=== PATIENT | male | born 1970 | race Caucasian/White ===

== ENCOUNTER 2018-10-26 20:02 | Inpatient (IN) | payer SELFPAY ==
[~2018-10-26] VITALS: Ht 170.2 cm; Wt 69.9 kg
[2018-10-26] MEDS ORDERED: SOD CHLORIDE 0.9% 1,000 ML IV STA (20:25)
[2018-10-26] MEDS ORDERED: ONDANSETRON 4 MG INJ IV STA (20:25)
[2018-10-26] MEDS ORDERED: SOD CHLORIDE 0.9% 100 ML ONE (20:27)
[2018-10-26] MEDS ORDERED: IOHEXOL 100 ML ONE (20:27)
--- NOTE | 2018-10-26 22:29 | ERD ---
ER Documentation Chief Complaint Chief Complaint vomiting/dizziness/blurry vision x 1 day. active vomiting HPI Patient is a 47-year-old male with no medical problems who presents with dizziness. The patient said that he started with dizziness at 9:30 AM this morning. He says that when he lays down he feels fine but when he sits up he gets dizzy. He had blurry vision as well. He felt like his balance was off. He had vomiting. He has no slurred speech and no weakness of his arms or legs. Upon review of old medical records this is the patient's first visit to the emergency department. He does not currently have a primary doctor. ROS All systems reviewed and are negative except as per history of present illness. PMhx/Soc Medical and Surgical Hx: pt denies Medical Hx History of Surgery: Yes (abdomen) Anesthesia Reaction: No Hx Neurological Disorder: No Hx Respiratory Disorders: No Hx Cardiac Disorders: No Hx Psychiatric Problems: No Hx Miscellaneous Medical Probl: No Hx Alcohol Use: Yes (daily) Hx Substance Use: Yes (marijuana) Hx Tobacco Use: Yes Smoking Status: Current every day smoker FmHx Family History: diabetes Physical Exam Vitals Vital Signs Date Temp Pulse Resp B/P (MAP) Pulse Ox O2 O2 Flow FiO2 Time Delivery Rate 10/26/18 68 20 114/69 100 Room Air 22:05 (84) 10/26/18 97.7 64 10 143/82 100 Room Air 21:02 (102) 10/26/18 Nasal 20:28 Cannula 10/26/18 97.6 78 18 154/93 98 20:10 (113) Physical Exam Const: Moderate distress Head: Atraumatic Eyes: Normal Conjunctiva ENT: Normal External Ears, Nose and Mouth. Neck: Full range of motion. No meningismus. Resp: Clear to auscultation bilaterally Cardio: Regular rate and rhythm, no murmurs Abd: Soft, non tender, non distended. Normal bowel sounds Skin: Diaphoresis Back: No midline or flank tenderness Ext: No cyanosis, or edema Neur: Awake and alert, cranial nerves II through XII are intact, strength is 5 out of 5 in all 4 extremity's, no slurred speech, patient does have nystagmus when looking to the left but none when looking to the right Psych: Normal Mood and Affect Result Diagram: 10/26/18203010/26/182030 Results 24 hrs Laboratory Tests Test 10/26/18 20:31 White Blood Count 9.7 10^3/ul Red Blood Count 4.97 10^6/ul Hemoglobin 14.1 g/dl Hematocrit 40.9 % Mean Corpuscular Volume 82.3 fl Mean Corpuscular Hemoglobin 28.4 pg Mean Corpuscular Hemoglobin Concent 34.5 g/dl Red Cell Distribution Width 13.9 % Platelet Count 333 10^3/UL Mean Platelet Volume 7.8 fl Immature Granulocytes % 0.500 % Neutrophils % 62.7 % Lymphocytes % 27.5 % Monocytes % 7.9 % Eosinophils % 0.9 % Basophils % 0.5 % Nucleated Red Blood Cells % 0.0 /100WBC Immature Granulocytes # 0.050 10^3/ul Neutrophils # 6.1 10^3/ul Lymphocytes # 2.7 10^3/ul Monocytes # 0.8 10^3/ul Eosinophils # 0.1 10^3/ul Basophils # 0.1 10^3/ul Nucleated Red Blood Cells # 0.0 10^3/ul Prothrombin Time 12.5 Sec Prothrombin Time Ratio 1.0 INR International Normalized Ratio 0.92 Activated Partial Thromboplast Time 25.4 Sec Sodium Level 144 mmol/L Potassium Level 3.9 mmol/L Chloride Level 107 mmol/L Carbon Dioxide Level 26 mmol/L Anion Gap 11 Blood Urea Nitrogen 7 mg/dl Creatinine 0.71 mg/dl Est Glomerular Filtrat Rate mL/min > 60 mL/min Glucose Level 128 mg/dl Hemoglobin A1c 5.7 % Calcium Level 9.8 mg/dl Creatine Kinase 81 IU/L Creatine Kinase Index 0.5 Creatinine Kinase MB (Mass) 0.43 ng/ml Troponin I < 0.012 ng/ml Triglycerides Level 471 mg/dl Cholesterol Level 186 mg/dl LDL Cholesterol, Calculated 37 mg/dl HDL Cholesterol 55 mg/dl Cholesterol/HDL Ratio 3.3 RATIO Ethyl Alcohol Level < 10.0 mg/dl Current Medications Medications Dose Sig/Brandee Start Time Status Last (Trade) Ordered Route PRN Stop Time Admin Dose Reason Admin Sodium 1,000 ml @ Q1H STAT 10/26/18 DC 10/26/18 Chloride 1,000 mls/hr IV 20:25 10/26/18 20:53 21:24 Ondansetron 4 mg ONCE STAT 10/26/18 DC 10/26/18 HCl (Zofran IV 20:25 10/26/18 20:52 Inj) 20:26 IV Flush 10 ml STK-MED 10/26/18 DC (NS 10 ml) ONCE .ROUTE 20:27 10/26/18 20:28 Sodium 100 ml @ ud STK-MED 10/26/18 DC Chloride ONCE .ROUTE 20:27 10/26/18 20:28 Iohexol 100 ml @ ud STK-MED 10/26/18 DC ONCE .ROUTE 20:27 10/26/18 20:28 Ondansetron 4 mg ER BRIDGE 10/26/18 HCl (Zofran PRN IV 22:30 10/27/18 Inj) NAUSEA/VOMITI 22:29 NG 650 mg ER BRIDGE 10/26/18 Acetaminophen PRN PO 22:30 10/27/18 (Tylenol .MILD PAIN 22:29 Tab) 1-3 OR TEMP IV Flush 3 ml PER 10/26/18 UNV (NS 3 ml) PROTOCOL IV 22:30 Ondansetron 4 mg Q6H PRN 10/26/18 UNV HCl (Zofran IV 22:30 Inj) NAUSEA/VOMITI NG Aspirin 81 mg DAILY PO 10/27/18 UNV (Aspirin) 09:00 650 mg Q6H PRN 10/26/18 UNV Acetaminophen PO .PAIN 1-3 22:30 (Tylenol OR TEMP Tab) Enoxaparin 40 mg DAILY SC 10/27/18 UNV Sodium 09:00 (Lovenox) Procedures/MDM CT brain read by radiology. CTA of the brain and neck read by radiology. Chest x-ray read by radiology. EKG read by me: Rate/Rhythm: Regular rate and rhythm at a normal rate Intervals: Normal Impression: No evidence of ischemia or arrhythmia Patient is a 47-year-old male who presents with dizziness and blurry vision and being off balance. A code stroke was called as he was within the 24-hour window for potential mechanical retrieval for a clot. He is outside the window for IV TPA as his symptoms started at 9:30 AM. Timeline is as follows: atient seen by myself ode stroke called and neurology was called 2030I spoke with Dr. Hurtado from telemetry neurology atient went to CT scan [id number] bleed per radiology on the noncontrast CT scan 5Dr. Hurtado complete his evaluation and said that there is no obvious acute ischemic stroke but there is an aneurysm. He recommended MRI of the brain to see if there actually was stroke or to see if there is any bleeding from this aneurysm. He has not convinced that the aneurysm is causing the patient's symptoms and therefore felt that MRI would be indicated prior to her surgery consultation. Patient was not a candidate for IV TPA as her symptoms are more than 4.5 hours old or transfer for mechanical retrieval as there is no large vessel occlusion. I spoke with Dr. Osborne from the panel team for admission to a telemetry observation bed. Critical Care: Time: 35 minutes excluding all billable procedures. Treatments/Evaluations: Close monitoring and treatment of unstable vital signs, cardiorespiratory, and neurologic status, while maintaining tight balance of fluid, respiratory, and cardiac interventions. Departure Diagnosis: Primary Impression: Dizziness Additional Impression: Vomiting Vomiting type: unspecified Vomiting Intractability: non-intractable Nausea presence: with nausea Qualified Codes: R11.2 - Nausea with vomiting, unspecified Condition: JANNETH Sheikh MD October 26, 2018 22:29
[2018-10-26] MEDS ORDERED: ONDANSETRON 4 MG INJ IV PRN ×2 (22:30)
[2018-10-26] MEDS ORDERED: NACL 0.9% 3 ML SYG IV SCH (22:30)
[2018-10-26] MEDS ORDERED: ACETAMINOPHEN 325 MG TAB PO PRN ×2 (22:30)
--- NOTE | 2018-10-26 22:52 | STROKE ---
Date/Time of Note Date/Time of Note DATE: 10/26/18 TIME: 22:41 Patient Information General Patient location: emergency Arrival Date Age 47 Gender male Weight 71.3 kg Vital Signs Vital Signs Vital Signs Date Temp Pulse Resp B/P (MAP) Pulse Ox O2 O2 Flow FiO2 Time Delivery Rate 10/26/18 68 20 114/69 100 Room Air 22:05 (84) 10/26/18 97.7 21:02 Patient History Past Medical History None Social History Other Other: cigars every other day and marijuana Current Medications Anti-Platelets: None Labs Coagulation Labs: Coagulation Test 10/26/18 20:31 Activated Partial Thromboplast Time 25.4 Sec (23.0-35.0) History & Physical History of Present Illness 47 yo M who presents with dizziness, blurry vision and new intermittent moderate headaches that began earlier today at around 930am. Symptoms had persisted since this morning, however at this time have improved Review of Systems All Other Systems: Reviewed and Negative NIH Stroke Scale NIH Stroke Scale [id number] Total Score: [id number] Date/Time Recorded DATE: 10/26/18 TIME: 21:41 Submitted By Kristopher Hurtado t-PA Imaging Review Imaging Reviewed: Yes Date/Time Imaging Reviewed DATE: 10/26/18 TIME: 22:41 t-PA Administration Recommendation: No Weight 71.3 kg Recommedation submitted by Kristopher Hutrado Reason t-PA not Recommended NIHSS of 0 and concern for other etiology such as SAH Recommendations Impression Diagnosis 47 yo M with subacute dizziness, new moderate headaches and neck stiffness, blurry vision that all began this morning. Symptoms have since improved and subsided. NIHSS was 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 TPA was not recommended given that his symptoms began outside the eligible time window, and also due to concern for potential other etiology such as SAH Recommendation Admission to telemetry for ischemic workup. Neurology consult to guide ischemic/embolic workup: TTE w bubble, LDL, A1c, MRI brain. If ischemic workup is unremarkable, would recommend referral to Neurosurgery and further evaluation of his cerebral aneurysm [id number] Diagnostic Labs: [id number] Lipid Proile Hgb A1C Urine Drug Screen KRISTOPHER HURTADO MD October 26, 2018 22:52
[2018-10-27] VITALS (10 sets, daily range): BP systolic 112–140; BP diastolic 68–80; PULSE 60–94; RESP 18–20; Ht 170.2 cm; Wt 69.9 kg
--- NOTE | 2018-10-27 07:49 | HP ---
Date/Time of Note Date/Time of Note DATE: 10/27/18 TIME: 07:41 Assessment/Plan VTE Prophylaxis Pharmacological prophylaxis: heparin Lines/Catheters IV Catheter Type (from [facility]): Saline Lock Urinary Cath still in place: No Assessment/Plan Assessment/Plan 47-year-old male with no significant past medical history presented with blurry vision, headache and neck stiffness. Head CT negative for acute findings. CT Lottie of the head and neck shows approximately 2.3 x 2.5 mm aneurysm off of the cavernous left ICA. PLAN -Continue telemetry monitoring -Aspirin and statin -MRI of the brain -2D echo -PT eval prior to discharge Result Diagram: 10/27/18 0556 10/27/18 0556 Results 24hrs Laboratory Tests Test 10/26/18 20:31 10/27/18 01:08 10/27/18 05:56 White Blood Count 9.7 10.0 Red Blood Count 4.97 4.72 Hemoglobin 14.1 13.1 L Hematocrit 40.9 L 38.7 L Mean Corpuscular Volume 82.3 82.0 Mean Corpuscular Hemoglobin 28.4 L 27.8 L Mean Corpuscular Hemoglobin Concent 34.5 33.9 Red Cell Distribution Width 13.9 14.0 Platelet Count 333 355 Mean Platelet Volume 7.8 8.2 Immature Granulocytes % 0.500 H 0.400 Neutrophils % 62.7 48.3 Lymphocytes % 27.5 40.4 Monocytes % 7.9 9.7 Eosinophils % 0.9 0.9 Basophils % 0.5 0.3 Nucleated Red Blood Cells % 0.0 0.0 Immature Granulocytes # 0.050 H 0.040 H Neutrophils # 6.1 4.8 Lymphocytes # 2.7 4.0 H Monocytes # 0.8 1.0 H Eosinophils # 0.1 0.1 Basophils # 0.1 0.0 Nucleated Red Blood Cells # 0.0 0.0 Prothrombin Time 12.5 Prothrombin Time Ratio 1.0 INR International Normalized Ratio 0.92 Activated Partial Thromboplast Time 25.4 Sodium Level 144 141 Potassium Level 3.9 3.7 Chloride Level 107 106 Carbon Dioxide Level 26 25 Anion Gap 11 10 Blood Urea Nitrogen 7 5 L Creatinine 0.71 0.69 Est Glomerular Filtrat Rate mL/min > 60 > 60 Glucose Level 128 104 Hemoglobin A1c 5.7 Calcium Level 9.8 9.6 Creatine Kinase 81 Creatine Kinase Index 0.5 Creatinine Kinase MB (Mass) 0.43 Troponin I < 0.012 Triglycerides Level 471 H 328 H Cholesterol Level 186 177 LDL Cholesterol, Calculated 37 62 # HDL Cholesterol 55 49 Cholesterol/HDL Ratio 3.3 3.6 Ethyl Alcohol Level < 10.0 H Urine Color STRAW Urine Clarity CLEAR Urine pH 7.0 Urine Specific [place] > 1.060 H Urine Ketones NEGATIVE Urine Nitrite NEGATIVE Urine Bilirubin NEGATIVE Urine Urobilinogen NEGATIVE Urine Leukocyte Esterase TRACE A Urine Microscopic RBC 1 Urine Microscopic WBC 3 Urine Hemoglobin 1+ H Urine Glucose NEGATIVE Urine Total Protein NEGATIVE Urine Opiates Screen Negative Urine Barbiturates Negative Urine Amphetamines Screen Negative Urine Benzodiazepines Screen Negative Urine Cocaine Screen Negative Urine Cannabinoids Positive Magnesium Level 2.0 Total Bilirubin 0.5 Direct Bilirubin 0.00 Indirect Bilirubin 0.5 Aspartate Amino Transf (AST/SGOT) 21 Alanine Aminotransferase (ALT/SGPT) 22 Alkaline Phosphatase 82 Total Protein 6.9 Albumin 3.9 Globulin 3.00 Albumin/Globulin Ratio 1.30 Thyroid Stimulating Hormone (TSH) 2.320 HPI/ROS Admit Date/Time Admit Date/Time October 26, 2018 at 22:11 Hx of Present Illness This is a 47-year-old male with no significant past medical history who presented to the ER with blurry vision and headache. He said he woke up this morning around 9 AM with the symptoms. He went to local supermarket, but pain actually worsens while walking around. He denied focal weakness, numbness or slurred speech. He also denied chest pain, shortness of breath, fever or chills. He denied a similar symptoms in the past. Currently he is overall feeling well except complaining of not been able to sleep as a result of " people constantly coming to his room and awaken him up" When presented to the ER, vitals were stable. Basic labs in acceptable range. U tox only positive for marijuana. Head CT in the ER was negative for acute findings. CT Lottie of the head and neck shows approximately 2.3 x 2.5 mm aneurysm off of the cavernous left ICA. PMH/Family/Social Past Medical History Medical History: other (See HPI) Medications Current Medications Ondansetron HCl (Zofran Inj) 4 mg ER BRIDGE PRN IV NAUSEA/VOMITING Last administered on 10/27/18at 03:18; Admin Dose 4 MG; Start 10/26/18 at 22:30; Stop 10/27/18 at 22:29 Acetaminophen (Tylenol Tab) 650 mg ER BRIDGE PRN PO .MILD PAIN 1-3 OR TEMP; Start 10/26/18 at 22:30; Stop 10/27/18 at 22:29 IV Flush (NS 3 ml) 3 ml PER PROTOCOL IV ; Start 10/26/18 at 22:30 Ondansetron HCl (Zofran Inj) 4 mg Q6H PRN IV NAUSEA/VOMITING; Start 10/26/18 at 22:30 Aspirin (Aspirin) 81 mg DAILY PO ; Start 10/27/18 at 09:00 Acetaminophen (Tylenol Tab) 650 mg Q6H PRN PO .PAIN 1-3 OR TEMP; Start 10/26/18 at 22:30 Enoxaparin Sodium (Lovenox) 40 mg DAILY SC ; Start 10/27/18 at 09:00 Coded Allergies: No Known Allergy (Unverified , 10/26/18) Past Surgical History Past Surgical Hx: other (See HPI) Family History Significant Family History: no pertinent family hx Social History Alcohol Use: none Smoking Status: Light tobacco smoker Drug Use: none Exam/Review of Systems Vital Signs Vitals Vital Signs Date Temp Pulse Resp B/P (MAP) Pulse Ox O2 O2 Flow FiO2 Time Delivery Rate 10/27/18 98.2 70 18 120/80 92 Room Air 04:00 (93) Intake and Output 10/26/18 10/26/18 10/27/18 1515:00 23:00 07:00 IntakeIntake Total 1000 ml BalanceBalance 1000 ml Exam Constitutional: alert, oriented, well developed Head: normocephalic, atraumatic Eyes: EOMI, PERRL Respiratory: clear to auscultation, normal air movement Cardiovascular: regular rate and rhythm, nl pulses Gastrointestinal: soft Extremities: normal pulses Neurological: nl mental status, nl speech, nl strength KESHAWN EVANS MD October 27, 2018 07:49
[2018-10-27] MEDS: ASPIRIN 81 MG TAB PO SCH (08:19)
[2018-10-27] MEDS ORDERED: ENOXAPARIN 40 MG/0.4 ML SYG SC SCH (09:00)
--- NOTE | 2018-10-27 14:46 | PN ---
Date/Time of Note Date/Time of Note DATE: 10/27/18 TIME: 14:46 Assessment/Plan VTE Prophylaxis Risk score (from [facility])>0 risk: 1 SCD applied (from [facility]): No SCD contraindicated: other Pharmacological prophylaxis: NA/contraindicated Pharm contraindication: low risk/ambulating Lines/Catheters [facility] Saline Lock Urinary Cath still in place: No Assessment/Plan Hospital Course SUBJECTIVE: Lying in bed comfortably. No further dizziness, blurry vision, or headache. Tele showed 6 beats of V. tach nonsustained. OBJECTIVE: Vital signs-see below PHYSICAL EXAM: Constitutional: Adequately built,not in acute distress. HEENT: Head atraumatic and normocephalic. Eyes: Extraocular muscles intact. Anicteric sclerae. Pupils equal bilaterally, reactive to light. NECK: Supple without lymph node. CHEST: Clear and good breath sounds equally. No wheezing. No rhonchi. HEART: S1, S2. Regular rate and rhythm. ABDOMEN: Soft/non tender with no rebound tenderness. Bowel sounds were present. EXTREMITIES: No cyanosis, clubbing or edema. NEUROLOGIC: Alert and oriented x3. No focal deficit. No sensory deficit. PSYCHOSOCIAL: No signs of depression. INTEGUMENTARY: No open wounds. ASSESSMENT AND PLAN:47 yo M w/no pmh admitted for sudden onset of dizziness/blurry vision/headache, also found to have cerebral aneurysm. Headache/vision changes, rule out etiology -Symptoms resolved -Neurology consult -Pending MRI -Aspirin/statin regimen Cerebral aneurysm measuring 2.3 x 2.5 mm -unsure has something to do with presenting symptoms.. Will call neurosurgery if indicated by neurology. Dyslipidemia/triglyceridemia -At high intensity statin Cannabis use -Advised on cessation NSVT/6 beats -Cardiology consult -Monitor elect light level closely and keep K>4.0,mag>2.0 VT prophylaxis: SCDs Disposition: Follow-up neurology recommendations. Follow-up MRI. Patient was seen in collaboration with Dr. Pierce. Result Diagram: 10/27/18 0556 10/27/18 0556 Results 24hrs Laboratory Tests Test 10/26/18 20:31 10/27/18 01:08 10/27/18 05:56 10/27/18 14:01 White Blood Count 9.7 10.0 Red Blood Count 4.97 4.72 Hemoglobin 14.1 13.1 L Hematocrit 40.9 L 38.7 L Mean Corpuscular Volume 82.3 82.0 Mean Corpuscular 28.4 L 27.8 L Hemoglobin Mean Corpuscular 34.5 33.9 Hemoglobin Concent Red Cell Distribution 13.9 14.0 Width Platelet Count 333 355 Mean Platelet Volume 7.8 8.2 Immature Granulocytes % 0.500 H 0.400 Neutrophils % 62.7 48.3 Lymphocytes % 27.5 40.4 Monocytes % 7.9 9.7 Eosinophils % 0.9 0.9 Basophils % 0.5 0.3 Nucleated Red Blood 0.0 0.0 Cells % Immature Granulocytes # 0.050 H 0.040 H Neutrophils # 6.1 4.8 Lymphocytes # 2.7 4.0 H Monocytes # 0.8 1.0 H Eosinophils # 0.1 0.1 Basophils # 0.1 0.0 Nucleated Red Blood 0.0 0.0 Cells # Prothrombin Time 12.5 Prothrombin Time Ratio 1.0 INR International 0.92 Normalized Ratio Activated 25.4 Partial Thromboplast Time Sodium Level 144 141 Potassium Level 3.9 3.7 Chloride Level 107 106 Carbon Dioxide Level 26 25 Anion Gap 11 10 Blood Urea Nitrogen 7 5 L Creatinine 0.71 0.69 Est Glomerular Filtrat > 60 > 60 Rate mL/min Glucose Level 128 104 Hemoglobin A1c 5.7 5.8 Calcium Level 9.8 9.6 Creatine Kinase 81 96 Creatine Kinase Index 0.5 0.4 Creatinine Kinase MB 0.43 0.38 (Mass) Troponin I < 0.012 < 0.012 Triglycerides Level 471 H 328 H Cholesterol Level 186 177 LDL Cholesterol, 37 62 # Calculated HDL Cholesterol 55 49 Cholesterol/HDL Ratio 3.3 3.6 Ethyl Alcohol Level < 10.0 H Urine Color STRAW Urine Clarity CLEAR Urine pH 7.0 Urine Specific [place] > 1.060 H Urine Ketones NEGATIVE Urine Nitrite NEGATIVE Urine Bilirubin NEGATIVE Urine Urobilinogen NEGATIVE Urine Leukocyte Esterase TRACE A Urine Microscopic RBC 1 Urine Microscopic WBC 3 Urine Hemoglobin 1+ H Urine Glucose NEGATIVE Urine Total Protein NEGATIVE Urine Opiates Screen Negative Urine Barbiturates Negative Urine Amphetamines Negative Screen Urine Benzodiazepines Negative Screen Urine Cocaine Screen Negative Urine Cannabinoids Positive Magnesium Level 2.0 Total Bilirubin 0.5 Direct Bilirubin 0.00 Indirect Bilirubin 0.5 Aspartate Amino 21 Transf (AST/SGOT) Alanine 22 Aminotransferase (ALT/SG PT) Alkaline Phosphatase 82 Total Protein 6.9 Albumin 3.9 Globulin 3.00 Albumin/Globulin Ratio 1.30 Thyroid Stimulating 2.320 Hormone (TSH) Exam/Review of Systems Exam Vitals Vital Signs Date Temp Pulse Resp B/P (MAP) Pulse Ox O2 O2 Flow FiO2 Time Delivery Rate 10/27/18 98.0 67 20 131/79 98 12:20 (96) 10/27/18 Room Air 04:00 Intake and Output 10/26/18 10/26/18 10/27/18 1515:00 23:00 07:00 IntakeIntake Total 1000 ml BalanceBalance 1000 ml Results Results 24hrs Laboratory Tests Test 10/26/18 20:31 10/27/18 01:08 10/27/18 05:56 10/27/18 14:01 White Blood Count 9.7 10.0 Red Blood Count 4.97 4.72 Hemoglobin 14.1 13.1 L Hematocrit 40.9 L 38.7 L Mean Corpuscular Volume 82.3 82.0 Mean Corpuscular 28.4 L 27.8 L Hemoglobin Mean Corpuscular 34.5 33.9 Hemoglobin Concent Red Cell Distribution 13.9 14.0 Width Platelet Count 333 355 Mean Platelet Volume 7.8 8.2 Immature Granulocytes % 0.500 H 0.400 Neutrophils % 62.7 48.3 Lymphocytes % 27.5 40.4 Monocytes % 7.9 9.7 Eosinophils % 0.9 0.9 Basophils % 0.5 0.3 Nucleated Red Blood 0.0 0.0 Cells % Immature Granulocytes # 0.050 H 0.040 H Neutrophils # 6.1 4.8 Lymphocytes # 2.7 4.0 H Monocytes # 0.8 1.0 H Eosinophils # 0.1 0.1 Basophils # 0.1 0.0 Nucleated Red Blood 0.0 0.0 Cells # Prothrombin Time 12.5 Prothrombin Time Ratio 1.0 INR International 0.92 Normalized Ratio Activated 25.4 Partial Thromboplast Time Sodium Level 144 141 Potassium Level 3.9 3.7 Chloride Level 107 106 Carbon Dioxide Level 26 25 Anion Gap 11 10 Blood Urea Nitrogen 7 5 L Creatinine 0.71 0.69 Est Glomerular Filtrat > 60 > 60 Rate mL/min Glucose Level 128 104 Hemoglobin A1c 5.7 5.8 Calcium Level 9.8 9.6 Creatine Kinase 81 96 Creatine Kinase Index 0.5 0.4 Creatinine Kinase MB 0.43 0.38 (Mass) Troponin I < 0.012 < 0.012 Triglycerides Level 471 H 328 H Cholesterol Level 186 177 LDL Cholesterol, 37 62 # Calculated HDL Cholesterol 55 49 Cholesterol/HDL Ratio 3.3 3.6 Ethyl Alcohol Level < 10.0 H Urine Color STRAW Urine Clarity CLEAR Urine pH 7.0 Urine Specific [place] > 1.060 H Urine Ketones NEGATIVE Urine Nitrite NEGATIVE Urine Bilirubin NEGATIVE Urine Urobilinogen NEGATIVE Urine Leukocyte Esterase TRACE A Urine Microscopic RBC 1 Urine Microscopic WBC 3 Urine Hemoglobin 1+ H Urine Glucose NEGATIVE Urine Total Protein NEGATIVE Urine Opiates Screen Negative Urine Barbiturates Negative Urine Amphetamines Negative Screen Urine Benzodiazepines Negative Screen Urine Cocaine Screen Negative Urine Cannabinoids Positive Magnesium Level 2.0 Total Bilirubin 0.5 Direct Bilirubin 0.00 Indirect Bilirubin 0.5 Aspartate Amino 21 Transf (AST/SGOT) Alanine 22 Aminotransferase (ALT/SG PT) Alkaline Phosphatase 82 Total Protein 6.9 Albumin 3.9 Globulin 3.00 Albumin/Globulin Ratio 1.30 Thyroid Stimulating 2.320 Hormone (TSH) Medications Medication Current Medications IV Flush (NS 3 ml) 3 ml PER PROTOCOL IV ; Start 10/26/18 at 22:30 Ondansetron HCl (Zofran Inj) 4 mg Q6H PRN IV NAUSEA/VOMITING; Start 10/26/18 at 22:30 Aspirin (Aspirin) 81 mg DAILY PO Last administered on 10/27/18at 08:19; Admin Dose 81 MG; Start 10/27/18 at 09:00 Acetaminophen (Tylenol Tab) 650 mg Q6H PRN PO .PAIN 1-3 OR TEMP; Start 10/26/18 at 22:30 Atorvastatin Calcium (Lipitor) 80 mg HS PO ; Start 10/27/18 at 21:00 TSERING ARMENDARIZ NP October 27, 2018 14:46
[2018-10-27] MEDS ORDERED: POTASSIUM CHLORIDE (SR) 20 MEQ TAB PO STA (15:07)
--- NOTE | 2018-10-27 16:14 | CONS ---
Assessment/Plan Assessment/Plan Hospital Course 47 yo M with no significant PMH who presents for evaluation of nonspecific headache, dizziness, and blurred vision... for which neurology is consulted. The clinical picture could be consistent with new onset migraines. 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 CTH was unrevealing. CTA H/N was notable for an incidental 2mm L cavernous ICA aneurysm. P: Await MRI brain for further characterization Agree with ASA/Lipitor pending the above Permissive HTN for 24h pending the above Cont medical management per primary PT/OT as necessary Will follow clinically, to recommend neurologic studies, as necessary Consultation Date/Type/Reason Admit Date/Time October 26, 2018 at 22:11 Type of Consult Neurology Reason for Consultation headache/dizziness Requesting Provider: BEATRIZ COOPER Date/Time of Note DATE: 10/27/18 TIME: 16:14 Hx of Present Illness 47 yo M with no significant PMH who presented to the ED with c/o headache, dizziness and blurred vision. History was obtained from pt and chart review. The pt states that his headache and blurred vision have resolved, though his dizziness persists. Denies all other focal sx currently. He confirms the story below: Hx of Present Illness This is a 47-year-old male with no significant past medical history who presented to the ER with blurry vision and headache. He said he woke up this morning around 9 AM with the symptoms. He went to local supermarket, but pain actually worsens while walking around. He denied focal weakness, numbness or slurred speech. He also denied chest pain, shortness of breath, fever or chills. He denied a similar symptoms in the past. Currently he is overall feeling well except complaining of not been able to sleep as a result of " people constantly coming to his room and awaken him up" When presented to the ER, vitals were stable. Basic labs in acceptable range. U tox only positive for marijuana. Head CT in the ER was negative for acute findings. CT Lottie of the head and neck shows approximately 2.3 x 2.5 mm aneurysm off of the cavernous left ICA. negative unless noted otherwise in HPI Exam/Review of Systems Exam Vitals Vital Signs Date Temp Pulse Resp B/P (MAP) Pulse Ox O2 O2 Flow FiO2 Time Delivery Rate 10/27/18 66 16:00 10/27/18 98.0 20 131/79 98 12:20 (96) 10/27/18 Room Air 04:00 Intake and Output 10/26/18 10/26/18 10/27/18 1414:59 22:59 06:59 IntakeIntake Total 1000 ml BalanceBalance 1000 ml Exam PE: Gen Appearance: No Apparent Distress HEENT: Normocephalic Cardiovascular: Regular rate Lungs: Clear bilaterally Abdomen: Soft Extremities: Dry NE: The patient was alert and oriented.. Language was normal. Fund of knowledge was normal. Pupils were equal and reactive to light. There was no afferent pupillary defect. Visual chapman were normal. Funduscopic examination was limited. Ptosis was absent. There was no nystagmus. Facial sensation was normal. Face was symmetric with normal strength. Hearing was intact. Palate movements were normal. Neck strength was normal. There was normal tongue bulk and speed of movement. Tone was normal. Muscle bulk was normal. I did not see fasciculations. Arms and legs were strong. Vibration sensation was normal. Temperature and pinprick sensation was normal. Rapid alternating movements were normal. There was no dysmetria. There was no intention tremor. Gait was deferred due to bedrest. Arm and leg reflexes were 2+ and symmetric. Slaughter's sign was absent. Plantar responses were flexor. Results Result Diagram: 10/27/18 0556 10/27/18 0556 Results 24hrs Laboratory Tests Test 10/26/18 20:31 10/27/18 01:08 10/27/18 05:56 10/27/18 14:01 White Blood Count 9.7 10.0 Red Blood Count 4.97 4.72 Hemoglobin 14.1 13.1 L Hematocrit 40.9 L 38.7 L Mean Corpuscular Volume 82.3 82.0 Mean Corpuscular 28.4 L 27.8 L Hemoglobin Mean Corpuscular 34.5 33.9 Hemoglobin Concent Red Cell Distribution 13.9 14.0 Width Platelet Count 333 355 Mean Platelet Volume 7.8 8.2 Immature Granulocytes % 0.500 H 0.400 Neutrophils % 62.7 48.3 Lymphocytes % 27.5 40.4 Monocytes % 7.9 9.7 Eosinophils % 0.9 0.9 Basophils % 0.5 0.3 Nucleated Red Blood 0.0 0.0 Cells % Immature Granulocytes # 0.050 H 0.040 H Neutrophils # 6.1 4.8 Lymphocytes # 2.7 4.0 H Monocytes # 0.8 1.0 H Eosinophils # 0.1 0.1 Basophils # 0.1 0.0 Nucleated Red Blood 0.0 0.0 Cells # Prothrombin Time 12.5 Prothrombin Time Ratio 1.0 INR International 0.92 Normalized Ratio Activated 25.4 Partial Thromboplast Time Sodium Level 144 141 Potassium Level 3.9 3.7 Chloride Level 107 106 Carbon Dioxide Level 26 25 Anion Gap 11 10 Blood Urea Nitrogen 7 5 L Creatinine 0.71 0.69 Est Glomerular Filtrat > 60 > 60 Rate mL/min Glucose Level 128 104 Hemoglobin A1c 5.7 5.8 Calcium Level 9.8 9.6 Creatine Kinase 81 96 Creatine Kinase Index 0.5 0.4 Creatinine Kinase MB 0.43 0.38 (Mass) Troponin I < 0.012 < 0.012 Triglycerides Level 471 H 328 H Cholesterol Level 186 177 LDL Cholesterol, 37 62 # Calculated HDL Cholesterol 55 49 Cholesterol/HDL Ratio 3.3 3.6 Ethyl Alcohol Level < 10.0 H Urine Color STRAW Urine Clarity CLEAR Urine pH 7.0 Urine Specific [place] > 1.060 H Urine Ketones NEGATIVE Urine Nitrite NEGATIVE Urine Bilirubin NEGATIVE Urine Urobilinogen NEGATIVE Urine Leukocyte Esterase TRACE A Urine Microscopic RBC 1 Urine Microscopic WBC 3 Urine Hemoglobin 1+ H Urine Glucose NEGATIVE Urine Total Protein NEGATIVE Urine Opiates Screen Negative Urine Barbiturates Negative Urine Amphetamines Negative Screen Urine Benzodiazepines Negative Screen Urine Cocaine Screen Negative Urine Cannabinoids Positive Magnesium Level 2.0 Total Bilirubin 0.5 Direct Bilirubin 0.00 Indirect Bilirubin 0.5 Aspartate Amino 21 Transf (AST/SGOT) Alanine 22 Aminotransferase (ALT/SG PT) Alkaline Phosphatase 82 Total Protein 6.9 Albumin 3.9 Globulin 3.00 Albumin/Globulin Ratio 1.30 Thyroid Stimulating 2.320 Hormone (TSH) Medications Medication Current Medications IV Flush (NS 3 ml) 3 ml PER PROTOCOL IV ; Start 10/26/18 at 22:30 Ondansetron HCl (Zofran Inj) 4 mg Q6H PRN IV NAUSEA/VOMITING; Start 10/26/18 at 22:30 Aspirin (Aspirin) 81 mg DAILY PO Last administered on 10/27/18at 08:19; Admin Dose 81 MG; Start 10/27/18 at 09:00 Acetaminophen (Tylenol Tab) 650 mg Q6H PRN PO .PAIN 1-3 OR TEMP; Start 10/26/18 at 22:30 Atorvastatin Calcium (Lipitor) 80 mg HS PO ; Start 10/27/18 at 21:00 Past Medical History reviewed Medical History: other (See HPI) Medications Current Medications IV Flush (NS 3 ml) 3 ml PER PROTOCOL IV ; Start 10/26/18 at 22:30 Ondansetron HCl (Zofran Inj) 4 mg Q6H PRN IV NAUSEA/VOMITING; Start 10/26/18 at 22:30 Aspirin (Aspirin) 81 mg DAILY PO Last administered on 10/27/18at 08:19; Admin Dose 81 MG; Start 10/27/18 at 09:00 Acetaminophen (Tylenol Tab) 650 mg Q6H PRN PO .PAIN 1-3 OR TEMP; Start 10/26/18 at 22:30 Atorvastatin Calcium (Lipitor) 80 mg HS PO ; Start 10/27/18 at 21:00 Allergies: Coded Allergies: No Known Allergy (Unverified , 10/26/18) Past Surgical History reviewed Past Surgical Hx: other (See HPI) Social History reviewed Alcohol Use: none Smoking Status: Light tobacco smoker Drug Use: none YESSENIA STAPLES NP October 27, 2018 16:14
--- NOTE | 2018-10-27 18:07 | CONS ---
Assessment/Plan Assessment/Plan Hospital Course (Demo Recall) Dizziness: Work-up as per internal medicine MRI is pending One episode of monomorphic nonsustained asymptomatic ventricular tachycardia: Smoker history of alcohol use Recommendations: Correct electrolytes as needed Echocardiogram is pending. Otherwise as long as echocardiogram shows preserved ejection fraction no further cardiac work-up would be indicated. neuro work up as per IM/ neurology consultations Thank you Consultation Date/Type/Reason Admit Date/Time October 26, 2018 at 22:11 Date of Consultation: October 27, 2018 Type of Consult Cardiology Reason for Consultation Arrhythmia Requesting Provider: TSERING ARMENDARIZ NP Date/Time of Note DATE: 10/27/18 TIME: 18:03 Hx of Present Illness Interventional cardiology consultation note Chief complaint: Dizziness blurred vision Reason for consult: Arrhythmia History of present illness: Thank you for this referral. This is a 39-year-old -Malag[place] gentleman with no past medical history who presents the emergency room with complaint of dizziness for 1 day. Patient also said he had blurred vision. Patient is a poor historian cannot describe them well and tells me to look at the notes in the chart Patient denies any chest pain or pressure to me denies any palpitation to me. Telemetry he was noted to have one episode of monomorphic nonsustained V. tach which appeared to be completely asymptomatic Allergies: No known drug allergies Medications none at home Family history: Grandmother with coronary artery disease age 87 Social history: Actively smokes and heavily drinks. Does use marijuana Past medical history: Denies all Review of system: Patient denies all others except for above-mentioned Past Medical History Medications Current Medications IV Flush (NS 3 ml) 3 ml PER PROTOCOL IV ; Start 10/26/18 at 22:30 Ondansetron HCl (Zofran Inj) 4 mg Q6H PRN IV NAUSEA/VOMITING; Start 10/26/18 at 22:30 Aspirin (Aspirin) 81 mg DAILY PO Last administered on 10/27/18at 08:19; Admin Dose 81 MG; Start 10/27/18 at 09:00 Acetaminophen (Tylenol Tab) 650 mg Q6H PRN PO .PAIN 1-3 OR TEMP; Start 10/26/18 at 22:30 Atorvastatin Calcium (Lipitor) 80 mg HS PO ; Start 10/27/18 at 21:00 Allergies: Coded Allergies: No Known Allergy (Unverified , 10/26/18) Past Surgical History Past Surgical Hx: other (See HPI) Social History Alcohol Use: none Smoking Status: Light tobacco smoker Drug Use: none Exam/Review of Systems Vital Signs Vitals Vital Signs Date Temp Pulse Resp B/P (MAP) Pulse Ox O2 O2 Flow FiO2 Time Delivery Rate 10/27/18 97.6 70 18 133/78 98 16:41 (96) 10/27/18 Room Air 04:00 Intake and Output 10/26/18 10/26/18 10/27/18 1515:00 23:00 07:00 IntakeIntake Total 1000 ml BalanceBalance 1000 ml Exam Exam General: no acute distress HEENT: NC/AT. pupils are equal. round. NECK: NO JVD. no stridor. CV: RRR. systolic murmur; no gallop or rubs. PULM: no wheezing or rhonchi. GI: SOFT, NT, ND, no rebound or guarding Extremity: trace B/L LE edema. no clubbing. neuro: awake and alert, OX3. EKG was personally within normal sinus rhythm. Poor R progression otherwise no evidence of ischemia Labs Result Diagram: 10/27/18 0556 10/27/18 0556 Results 24hrs Laboratory Tests Test 10/26/18 20:31 10/27/18 01:08 10/27/18 05:56 10/27/18 14:01 White Blood Count 9.7 10.0 Red Blood Count 4.97 4.72 Hemoglobin 14.1 13.1 L Hematocrit 40.9 L 38.7 L Mean Corpuscular Volume 82.3 82.0 Mean Corpuscular 28.4 L 27.8 L Hemoglobin Mean Corpuscular 34.5 33.9 Hemoglobin Concent Red Cell Distribution 13.9 14.0 Width Platelet Count 333 355 Mean Platelet Volume 7.8 8.2 Immature Granulocytes % 0.500 H 0.400 Neutrophils % 62.7 48.3 Lymphocytes % 27.5 40.4 Monocytes % 7.9 9.7 Eosinophils % 0.9 0.9 Basophils % 0.5 0.3 Nucleated Red Blood 0.0 0.0 Cells % Immature Granulocytes # 0.050 H 0.040 H Neutrophils # 6.1 4.8 Lymphocytes # 2.7 4.0 H Monocytes # 0.8 1.0 H Eosinophils # 0.1 0.1 Basophils # 0.1 0.0 Nucleated Red Blood 0.0 0.0 Cells # Prothrombin Time 12.5 Prothrombin Time Ratio 1.0 INR International 0.92 Normalized Ratio Activated 25.4 Partial Thromboplast Time Sodium Level 144 141 Potassium Level 3.9 3.7 Chloride Level 107 106 Carbon Dioxide Level 26 25 Anion Gap 11 10 Blood Urea Nitrogen 7 5 L Creatinine 0.71 0.69 Est Glomerular Filtrat > 60 > 60 Rate mL/min Glucose Level 128 104 Hemoglobin A1c 5.7 5.8 Calcium Level 9.8 9.6 Creatine Kinase 81 96 Creatine Kinase Index 0.5 0.4 Creatinine Kinase MB 0.43 0.38 (Mass) Troponin I < 0.012 < 0.012 Triglycerides Level 471 H 328 H Cholesterol Level 186 177 LDL Cholesterol, 37 62 # Calculated HDL Cholesterol 55 49 Cholesterol/HDL Ratio 3.3 3.6 Ethyl Alcohol Level < 10.0 H Urine Color STRAW Urine Clarity CLEAR Urine pH 7.0 Urine Specific [place] > 1.060 H Urine Ketones NEGATIVE Urine Nitrite NEGATIVE Urine Bilirubin NEGATIVE Urine Urobilinogen NEGATIVE Urine Leukocyte Esterase TRACE A Urine Microscopic RBC 1 Urine Microscopic WBC 3 Urine Hemoglobin 1+ H Urine Glucose NEGATIVE Urine Total Protein NEGATIVE Urine Opiates Screen Negative Urine Barbiturates Negative Urine Amphetamines Negative Screen Urine Benzodiazepines Negative Screen Urine Cocaine Screen Negative Urine Cannabinoids Positive Magnesium Level 2.0 Total Bilirubin 0.5 Direct Bilirubin 0.00 Indirect Bilirubin 0.5 Aspartate Amino 21 Transf (AST/SGOT) Alanine 22 Aminotransferase (ALT/SG PT) Alkaline Phosphatase 82 Total Protein 6.9 Albumin 3.9 Globulin 3.00 Albumin/Globulin Ratio 1.30 Thyroid Stimulating 2.320 Hormone (TSH) Medications Medications Current Medications IV Flush (NS 3 ml) 3 ml PER PROTOCOL IV ; Start 10/26/18 at 22:30 Ondansetron HCl (Zofran Inj) 4 mg Q6H PRN IV NAUSEA/VOMITING; Start 10/26/18 at 22:30 Aspirin (Aspirin) 81 mg DAILY PO Last administered on 10/27/18at 08:19; Admin Dose 81 MG; Start 10/27/18 at 09:00 Acetaminophen (Tylenol Tab) 650 mg Q6H PRN PO .PAIN 1-3 OR TEMP; Start 10/26/18 at 22:30 Atorvastatin Calcium (Lipitor) 80 mg HS PO ; Start 10/27/18 at 21:00 ELHAM ALEMAN MD October 27, 2018 18:07
[2018-10-27] MEDS ORDERED: ATORVASTATIN 80 MG TAB PO SCH (21:00)
[2018-10-28] VITALS: BP 119/63; PULSE 64; PULSE 69; RESP 18
[2018-10-28 04:00] VITALS: BP 128/65; PULSE 62; PULSE 64; RESP 19
[2018-10-28 07:35] VITALS: BP 152/90; PULSE 58; RESP 18
[2018-10-28 08:00] VITALS: PULSE 77
[2018-10-28] MEDS: ASPIRIN 81 MG TAB PO SCH (09:09)
--- NOTE | 2018-10-28 10:11 | RADRPT ---
Echocardiogram Report Patient Name: Mechelle KUMARI ID: [id number] : 1970 (48y )Study Date: 10/28/2018 8:33:16 AM Gender: MAccession #: [id number] Tech: Josh Kirby [facility] Location: 505-[address] Ref.Physician: TSERING ARMENDARIZ Height(Cm): BSA: Weight(Kg): Quality: GoodAccount #: Procedures: Echocardiographic Report: Transthoracic echocardiogram with complete 2D, M-Mode, and doppler examination. Indications: Stroke work up w/ bubble study. Measurements: 2D/M Mode Doppler Measurement Value Normal Range Measurement Value Normal Range LVIDd 2D 5.0 [ 4.2 - 5.8 ] cm AV Peak Gus 1.2 [ 100.0 - 170.0 ] cm/sec LVIDs 2D 3.6 [ 2.5 - 4.0 ] cm AV Peak PG 6.0 [ 2.0 - 9.0 ] mmHg LVPWd 2D 1.0 [ 0.6 - 1.0 ] cm LVOT Peak Gus 0.9 [ 70.0 - 110.0 ] cm/sec IVSd 2D 1.2 [ 0.6 - 1.0 ] cm LVOT Peak PG 3.0 [ 2.0 - 6.0 ] mmHg AoR Diam 2D 2.9 [ 2.6 - 3.4 ] cm MV E Peak Gus 0.8 [ 60.0 - 130.0 ] cm/sec EDV 2D 120.0 [ 62.0 - 150.0 ] ml MV A Peak Gus 0.5 [ 100.0 - 120.0 ] cm/sec ESV 2D 54.8 [ 21.0 - 61.0 ] ml MV E/A 1.7 [ 0.8 - 1.5 ] ratio EF 2D 54.3 [ 52.0 - 72.0 ] percent MV Decel Time 246 [ 104 - 258 ] msec LA Dimen 2D 3.6 [ 3.0 - 4.0 ] cm Lat E` Gus 0.1 [ 10.0 - 15.0 ] cm/sec Lateral E/E` 6.2 [ 1.0 - 2.0 ] ratio MV E/A 1.7 [ 0.8 - 1.5 ] ratio TR Peak Gus 2.4 [ 100.0 - 280.0 ] cm/sec TR Peak PG 23.0 mmHg RVSP 33.0 [ 10.0 - 36.0 ] mmHg Findings: Left Ventricle: Lower limits of normal systolic function. Normal left ventricular cavity size. Mild asymmetric septal hypertrophy. Ejection fraction is visually estimated at 50 %. Tissue Doppler/Mitral Doppler indices are consistent with pseudonormalization with mildly elevated left atrial pressure (Stage II diastolic dysfunction). Right Ventricle: Normal right ventricular size. Normal right ventricular systolic function. Left Atrium: The left atrium is normal in size. Right Atrium: The right atrium is normal in size. Atrial Septum: Bubble study was performed with and with out valsalva indicating no evidence of intra atrial shunt. Mitral Valve: Mild mitral leaflet calcification. Mild mitral annular calcification. Trace mitral regurgitation. Aortic Valve: No hemodynamically significant aortic stenosis by doppler. Aortic cusps appear mildly calcified. Tricuspid Valve: Normal appearance of the tricuspid valve. Estimated peak PA systolic pressure 33 mmHg. There is mild tricuspid regurgitation. Pericardium: Normal pericardium with no significant pericardial effusion. Aorta: Normal aortic root. IVC: Normal size and normal respiratory collapse consistent with normal right atrial pressure. Conclusions: Lower limits of normal systolic function. Normal left ventricular cavity size. Mild asymmetric septal hypertrophy. Ejection fraction is visually estimated at 50 %. Tissue Doppler/Mitral Doppler indices are consistent with pseudonormalization with mildly elevated left atrial pressure (Stage II diastolic dysfunction). Mild mitral leaflet calcification. Mild mitral annular calcification. Trace mitral regurgitation. No hemodynamically significant aortic stenosis by doppler. Aortic cusps appear mildly calcified. Normal appearance of the tricuspid valve. Estimated peak PA systolic pressure 33 mmHg. There is mild tricuspid regurgitation. Electronically Signed By: Curtis Dorsey 2018-10-28 10:10:09 PDT
--- NOTE | 2018-10-28 11:35 | PDOCDIS ---
Discharge Instructions CONDITION [id number] Patient Condition: [id number] Stable HOME CARE INSTRUCTIONS: [id number] Diet Instructions: [id number] Low Fat /Cholesterol FOLLOW UP/APPOINTMENTS Follow-up Plan Follow-up with primary care physician in 1 week. We recommended repeating CT brain with contrast in 1 year to repeat measurement of cerebral aneurysm that was detected during your hospital course. Avoid migraine provoking situations like extreme stress, weather situation. Please try to eat on time. Drink plenty of water. Try to avoid dehydration. W e also recommend taking [id number] fish oil and diet changes to bring your triglycerides level down. I also recommend you following up with your primary care physician to repeat your cholesterol panel. TSERING ARMENDARIZ NP October 28, 2018 11:35
[2018-10-28] MEDS ORDERED: OMEG1CAP20 PO (11:37)
[2018-10-28] MEDS ORDERED: IBUP-1541 PO (11:37)
--- NOTE | 2018-10-28 11:37 | CONS ---
Assessment/Plan Assessment/Plan Hospital Course 47 yo M with no significant PMH who presents for evaluation of nonspecific headache, dizziness, and blurred vision... for which neurology is consulted. The clinical picture is most consistent with new onset migraines. A focal PATENT LEGAL ASSISTANT process is unlikely. MRI brain was unremarkable CTA H/N was notable for an incidental 2mm L cavernous ICA aneurysm. P: Cont pain and other medical management per primary PT/OT as necessary Will follow clinically Consultation Date/Type/Reason Admit Date/Time October 27, 2018 at 15:05 Type of Consult Neurology Reason for Consultation headache/dizziness Requesting Provider: BEATRIZ COOPER Date/Time of Note DATE: 10/28/18 TIME: 11:36 24 HR Interval Summary Free Text/Dictation Continues acute care. Exam Vital Signs Vitals Vital Signs Date Temp Pulse Resp B/P (MAP) Pulse Ox O2 O2 Flow FiO2 Time Delivery Rate 10/28/18 77 08:00 10/28/18 98.0 18 152/90 98 07:35 (110) 10/27/18 Room Air 04:00 Intake and Output 10/27/18 10/27/18 10/28/18 1515:00 23:00 07:00 IntakeIntake Total 750 ml 950 ml BalanceBalance 750 ml 950 ml Exam PE: Gen Appearance: No Apparent Distress HEENT: Normocephalic Cardiovascular: Regular rate Lungs: Clear bilaterally Abdomen: Soft Extremities: Dry NE: The patient was alert and oriented.. Language was normal. Fund of knowledge was normal. Pupils were equal and reactive to light. There was no afferent pupillary defect. Visual chapman were normal. Funduscopic examination was limited. Ptosis was absent. There was no nystagmus. Facial sensation was normal. Face was symmetric with normal strength. Hearing was intact. Palate movements were normal. Neck strength was normal. There was normal tongue bulk and speed of movement. Tone was normal. Muscle bulk was normal. I did not see fasciculations. Arms and legs were strong. Vibration sensation was normal. Temperature and pinprick sensation was normal. Rapid alternating movements were normal. There was no dysmetria. There was no intention tremor. Gait was deferred due to bedrest. Arm and leg reflexes were 2+ and symmetric. Slaughter's sign was absent. Plantar responses were flexor. YESSENIA STAPLES NP October 28, 2018 11:37
--- NOTE | 2018-10-28 11:46 | DS ---
Date/Time of Note Date/Time of Note DATE: 10/28/18 TIME: 11:43 Discharge Summary Admission/Discharge Info Admit Date/Time October 27, 2018 at 15:05 Discharge Date/Time Discharge Diagnosis Headache/blurry vision, likely migraine attacks. Resolved. One episode of monomorphic nonsustained asymptomatic ventricular tachycardia. Resolved spontaneously. 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 2D echocardiogram Conclusions: Lower limits of normal systolic function. Normal left ventricular cavity size. Mild asymmetric septal hypertrophy. Ejection fraction is visually estimated at 50 %. Tissue Doppler/Mitral Doppler indices are consistent with pseudonormalization with mildly elevated left atrial pressure (Stage II diastolic dysfunction). Mild mitral leaflet calcification. Mild mitral annular calcification. Trace mitral regurgitation. No hemodynamically significant aortic stenosis by doppler. Aortic cusps appear mildly calcified. Normal appearance of the tricuspid valve. Estimated peak PA systolic pressure 33 mmHg. There is mild tricuspid regurgitation. Electronically Signed By: Curtis Dorsey 2018-10-28 10:10:09 PDT 10/27/2018. MRI brain. IMPRESSION: 1. No evidence of acute intracranial pathology. 2. Minimal nonspecific white matter changes, which may reflect chronic small vessel ischemic changes. RPTAT: VV .Javier Nolasco MD, Date Time Electronically viewed and signed by .Javier Nolasco MD, on 10/28/2018 09:22 .O/ CC: KESHAWN EVANS MD [id number] 10/26/2018. Head CT IMPRESSION: 1. Major intracranial arteries are patent with no occlusion or significant stenosis. 2. Approximately 2.3 x 2.5 mm aneurysm off of the cavernous left ICA. 3. Major neck arteries are patent with no significant stenosis, atherosclerotic changes or dissection. 4. Paraseptal emphysema in the bilateral upper lobes. NASCET CAROTID STENOSIS CRITERIA (distal normal appearing ICA as denominator for measurement): 0%-none, 1-49%-mild, 50-70%-moderate, 70-89%-severe, 90-99%-critical. RPTAT: HHO .Dany Edgar MD, Date Time Electronically viewed and signed by .Dany Edgar MD, MD on 10/26/2018 21:14 .O/ CC: JANNETH JANE MD [id number] Hospital Course 47 yo M with no significant PMH who presents for evaluation of nonspecific headache, dizziness, and blurred vision.. Patient was ruled out for acute stroke, neurovascular events. Patient had neurology evaluation and according to them, clinical picture was most consistent with a new onset migraine. Patient was given pain medicines and responded well. There was no further episodes. 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 Patient also had One episode of monomorphic nonsustained asymptomatic ventricular tachycardia. 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 2D echocardiogram with preserved ejection fraction with mild diastolic dysfunction, otherwise stable and no further cardiac work-up needed as inpatient. At this time, patient is cleared for discharge with outpatient primary care follow-up. He was given instructions to prevent migraine attacks. Patient verbalized understanding. Approximately 60 m spent on coordinating the discharge on this patient. Patient was seen in collaboration with Dr. Pierce. Home Meds Active Scripts [place]-3/Dha/Epa/Fish Oil (FISH OIL 1,000 MG SOFTGEL) 1 Each Capsule, 1 EACH PO BID WITH MEALS, #60 CAP Prov:ARMENDARIZ,TSERING V. [employer]IN[employer]IAN 10/28/18 Ibuprofen* (Ibuprofen*) 400 Mg Tablet, 400 MG PO Q6H PRN for HEADACHE, #30 TAB Prov:ARMENDARIZ,TSERING V. [employer] VETERINARIAN 10/28/18 Follow-up Plan Follow-up with primary care physician in 1 week. We recommended repeating CT brain with contrast in 1 year to repeat measurement of cerebral aneurysm that was detected during your hospital course. Avoid migraine provoking situations like extreme stress, weather situation. Please try to eat on time. Drink plenty of water. Try to avoid dehydration. We also recommend taking mkex-wha-puvvzmi fish oil and diet changes to bring your triglycerides level down. I also recommend you following up with your primary care physician to repeat your cholesterol panel. Primary Care Provider Care Physician No Primary Pending Labs Laboratory Tests Test 10/27/18 14:01 10/27/18 19:35 10/28/18 06:57 Creatine Kinase 96 IU/L (23-200) 101 IU/L (23-200) Creatine Kinase 0.4 0.5 Index Creatinine Kinase 0.38 0.46 MB (Mass) ng/ml (0.0-2.4) ng/ml (0.0-2.4) Troponin I < 0.012 < 0.012 ng/ml (0.000-0.120) ng/ml (0.000-0.120 ) Sodium Level 140 mmol/L (135-144) Potassium Level 4.0 mmol/L (3.5-5.1) Chloride Level 106 mmol/L (97-110) Carbon Dioxide 26 mmol/L (21-31) Level Anion Gap 8 (5-13) Blood Urea Nitrogen 6 mg/dl (7-20) Creatinine 0.68 mg/dl (0.61-1.24) Est Glomerular > 60 mL/min (>60) Filtrat Rate mL/min Glucose Level 108 mg/dl (70-220) Calcium Level 9.3 mg/dl (8.4-10.2) Magnesium Level 2.0 mg/dl (1.7-2.5) TSERING ARMENDARIZ NP October 28, 2018 11:46
[2018-10-28 12:00] VITALS: PULSE 74
[2018-10-28 12:36] VITALS: BP 147/80; PULSE 62; RESP 17
== END 2018-10-28 13:00 | disposition home or self-care (01) | DRG 103 ==
LOC: E/R 20:02 → INTOOBSV 22:11 → TEL 22:11 → OBSVTOIN 10-27 15:05
PROVIDERS: ADMIT Internal Medicine; ATTEND Internal Medicine
DX: G43.909 Migraine, unspecified, not intractable, without status migrainosus (principal); I47.2 Ventricular tachycardia; I50.30 Unspecified diastolic (congestive) heart failure; I67.1 Cerebral aneurysm, nonruptured; F12.90 Cannabis use, unspecified, uncomplicated; F17.290 Nicotine dependence, other tobacco product, uncomplicated; E78.1 Pure hyperglyceridemia
CPT/HCPCS: 36415; 70450; 70496; 70498; 70551; 71045; 80048; 80053; 80061; 80307; 81001; 82550; 82553; 83036; 83735; 84443; 84484; 85025; 85610; 85730; 92610; 93005; 93306; 96374; 97161; G0378; J1650; J2405; J7030; Q9967